=== PATIENT | male | born 1990 | race Caucasian/White ===

== ENCOUNTER 2024-04-30 04:23 | Emergency (ER) | payer SELFPAY ==
[~2024-04-30] VITALS: Ht 175.3 cm; Wt 87.0 kg
[2024-04-30 04:34] VITALS: O2SAT 96
[2024-04-30 04:35] VITALS: TEMP 98.6
[2024-04-30] MEDS ORDERED: KETOROLAC 15MG/ML VIAL IM ONE (05:15)
[2024-04-30] MEDS ORDERED: NAPR-1176 MT (05:54)
[2024-04-30 06:38] VITALS: BP 132/90; PULSE 90; RESP 15
[2024-04-30] MEDS: KETOROLAC 15MG/ML VIAL IM NR (06:38)
== END 2024-04-30 06:41 | disposition home or self-care (01) ==
LOC: ER 04:39
DX: S59.801A Other specified injuries of right elbow, initial encounter (principal); M70.31 Other bursitis of elbow, right elbow; W01.0XXA Fall on same level from slipping, tripping and stumbling without subsequent striking against object, initial encounter; Y93.89 Activity, other specified; Y92.89 Other specified places as the place of occurrence of the external cause; Y99.8 Other external cause status
CPT/HCPCS: 99283; 73080; 96372; J1885